=== PATIENT | female | born 1995 | race African-American/Black ===

== ENCOUNTER 2018-05-11 21:55 | Emergency (ER) | payer SELFPAY ==
[~2018-05-11] VITALS: Ht 157.5 cm; Wt 52.3 kg
[~2018-05-11 21:55] MED LIST: PROAIR HFA8.5 GM INH
[2018-05-11 22:13] VITALS: Ht 157.5 cm; Wt 52.3 kg
[2018-05-11] MEDS ORDERED: EC-NAPROSYN500 MG PO (23:43)
[2018-05-11] MEDS ORDERED: CYCLOBENZAPRINE10 MG PO (23:43)
[2018-05-12 01:30] VITALS: BP 100/57
== END 2018-05-12 01:31 | disposition home or self-care (01) ==
LOC: D.ER 21:55
DX: S06.0X9A Concussion with loss of consciousness of unspecified duration, initial encounter (principal); V43.62XA Car passenger injured in collision with other type car in traffic accident, initial encounter; Y93.89 Activity, other specified; Y92.410 Unspecified street and highway as the place of occurrence of the external cause; S46.912A Strain of unspecified muscle, fascia and tendon at shoulder and upper arm level, left arm, initial encounter; S13.4XXA Sprain of ligaments of cervical spine, initial encounter